=== PATIENT | male | born 2000 | race Caucasian/White ===

== ENCOUNTER → 2020-08-03 | Outpatient (CLI) | payer SELFPAY | LOC: M LABSMTC 14:03 | PROVIDERS: ATTEND Pediatrics | DX: Z11.52 Encounter for screening for COVID-19 (principal) | CPT/HCPCS: C9803; U0003 ==

== ENCOUNTER 2022-04-12 06:00 | Emergency (ER) | payer OTHER, SELFPAY ==
[~2022-04-12] VITALS: Ht 175.3 cm; Wt 96.6 kg
[2022-04-12] MEDS ORDERED: IBUPROFEN 800 MG TAB PO ONE (07:30)
[2022-04-12] MEDS ORDERED: AUGMENTIN 875 MG TAB PO ONE (07:30)
[2022-04-12] MEDS ORDERED: AMOX875T2 PO (08:15)
[2022-04-12] MEDS ORDERED: PSEU120T19 PO (08:17)
[2022-04-12 08:18] VITALS: BP 144/91
== END 2022-04-12 08:43 | disposition home or self-care (01) ==
LOC: M ED 06:00
DX: J03.90 Acute tonsillitis, unspecified (principal); H92.03 Otalgia, bilateral; Z79.899 Other long term (current) drug therapy

== ENCOUNTER → 2024-01-19 | Outpatient (CLI) | payer OTHER ==
[~2024-01-19] MED LIST: AMOX875T2 PO; PSEU120T19 PO
== END ==
LOC: M PLARAD 13:24
PROVIDERS: ATTEND Internal Medicine
DX: R59.0 Localized enlarged lymph nodes (principal); R16.0 Hepatomegaly, not elsewhere classified; R61 Generalized hyperhidrosis; D48.7 Neoplasm of uncertain behavior of other specified sites
CPT/HCPCS: 78815; A9552

== ENCOUNTER 2024-01-26 23:43 | Emergency (ER) | payer OTHER ==
[~2024-01-26] VITALS: Ht 175.3 cm; Wt 91.5 kg
[2024-01-26 23:45] VITALS: TEMP 98
[2024-01-27 00:21] LABS: BASO % 0.3 % (0.0-1.0); EOS # 0.1 10^3/uL (0.0-0.5); EOS % 1.3 % (0.0-3.0); HEMATOCRIT 41.1 % (42.0-52.0); HEMOGLOBIN 14.2 g/dl (13.5-17.5); LYMPH # 3.2 10^3/uL (1.5-5.0); LYMPH % 39.9 % (24.0-44.0); MEAN CORPUSCULAR HEMOGLOBIN 30.9 pg (27.0-33.0); MEAN CORPUSCULAR HGB CONC 34.5 g/dl (32.0-36.5); MEAN CORPUSCULAR VOLUME 89.3 fl (80.0-96.0); MONO # 0.7 10^3/uL (0.0-0.8); MONO % 8.9 % (2.0-8.0); NEUTROPHILS % 49.2 % (36.0-66.0); PLATELET COUNT, AUTOMATED 200 10^3/uL (150-450)
[2024-01-27 00:37] LABS: ETHYL ALCOHOL (ETHANOL) < 0.003 % (0.000-0.010); LIPASE 288 U/L (12-53)
[2024-01-27 00:38] LABS: AMYLASE 129 U/L (30-118)
[2024-01-27 00:39] LABS: ALBUMIN 4.4 G/DL (3.2-5.2); ALKALINE PHOSPHATASE 92 U/L (46-116); ALT/SGPT 25 U/L (7.0-40); AST/SGOT 12 U/L (<34); BILIRUBIN,DIRECT < 0.1 MG/DL (<0.4); BILIRUBIN,TOTAL 0.3 MG/DL (0.3-1.2); TOTAL PROTEIN 7.5 G/DL (5.7-8.2)
[2024-01-27 02:52] VITALS: BP 170/118; O2SAT 100
[2024-01-27] MEDS ORDERED: KETOROLAC 30 MG/ML 1ML VIAL IM ONE (03:50)
[2024-01-27] MEDS ORDERED: ISOVUE-370 76% 100ML VIAL As Ordered ONE (03:59)
[2024-01-27] MEDS: KETOROLAC 30 MG/ML 1ML VIAL IV ONE (04:19)
== END 2024-01-27 07:32 | disposition home or self-care (01) ==
LOC: M ED 23:43
DX: R16.1 Splenomegaly, not elsewhere classified (principal); K59.00 Constipation, unspecified
CPT/HCPCS: 74177; 76705; 80047; 80076; 82077; 82150; 83690; 85025; 96374; 99284; J1885; Q9967

== ENCOUNTER 2024-01-30 11:58 | Emergency (ER) | payer OTHER ==
[~2024-01-30] VITALS: Ht 175.3 cm; Wt 86.4 kg
[2024-01-30 12:51] LABS: BASO % 0.4 % (0.0-1.0); EOS % 0.4 % (0.0-3.0); HEMATOCRIT 44.7 % (42.0-52.0); HEMOGLOBIN 15.4 g/dl (13.5-17.5); LYMPH % 13.2 % (24.0-44.0); MEAN CORPUSCULAR HEMOGLOBIN 30.6 pg (27.0-33.0); MEAN CORPUSCULAR HGB CONC 34.5 g/dl (32.0-36.5); MEAN CORPUSCULAR VOLUME 88.9 fl (80.0-96.0); MONO # 0.6 10^3/uL (0.0-0.8); MONO % 7.9 % (2.0-8.0); NEUTROPHILS # 6.1 10^3/uL (1.5-8.5); NEUTROPHILS % 77.8 % (36.0-66.0); PLATELET COUNT, AUTOMATED 199 10^3/uL (150-450); RED BLOOD COUNT 5.03 10^6/uL (4.30-6.10); WHITE BLOOD COUNT 7.9 10^3/uL (4.0-10.0)
[2024-01-30 13:25] LABS: ALBUMIN 4.8 G/DL (3.2-5.2); BILIRUBIN,DIRECT 0.3 MG/DL (<0.4); BILIRUBIN,TOTAL 0.9 MG/DL (0.3-1.2); TOTAL PROTEIN 8.2 G/DL (5.7-8.2)
[2024-01-30] MEDS: NS 1,000 ML IV ONE (13:46)
[2024-01-30] MEDS: KETOROLAC 30 MG/ML 1ML VIAL IV ONE (13:46)
[2024-01-30 14:08] LABS: AMORPHOUS SEDIMENT SMALL (NEGATIVE); APPEARANCE, URINE CLOUDY (CLEAR); BACTERIA, URINE AUTO NEGATIVE (NEGATIVE); BILIRUBIN, URINE AUTO NEGATIVE (NEGATIVE); BLOOD, URINE BLOOD NEGATIVE (NEGATIVE); COLOR, URINE YELLOW (YELLOW); GLUCOSE, URINE (UA) AUTO NEGATIVE (NEGATIVE); KETONE, URINE AUTO TRACE mg/dL (NEGATIVE); LEUKOCYTE ESTERASE, URINE AUTO NEGATIVE (NEGATIVE); MUCUS, URINE SMALL (NEGATIVE); NITRITE, URINE AUTO NEGATIVE (NEGATIVE); PROTEIN, URINE AUTO 1+ mg/dL (NEGATIVE); RBC, URINE AUTO 0 /HPF (0-3); SPECIFIC GRAVITY URINE AUTO 1.023 (1.002-1.035); SQUAMOUS EPITHELIAL CELL UR AU 0 /HPF (0-6); UROBILINOGEN, URINE AUTO 0.2 mg/dL (0.0-2.0); WBC, URINE AUTO 1 /HPF (0-3)
[2024-01-30 14:37] LABS: AMPHETAMINES LEVEL URINE NEGATIVE (NEGATIVE)
[2024-01-30 14:38] LABS: BARBITURATES URINE NEGATIVE (NEGATIVE); BENZODIAZEPINES URINE NEGATIVE (NEGATIVE); COCAINE METABOLITE URINE NEGATIVE (NEGATIVE); METHADONE URINE NEGATIVE (NEGATIVE); PHENCYCLIDINE URINE NEGATIVE (NEGATIVE)
[2024-01-30 14:44] LABS: MONO REFLEX EBV COMP NEGATIVE (NEGATIVE)
[2024-01-30 14:50] LABS: CANNABINOIDS URINE POSITIVE (NEGATIVE); OPIATES URINE POSITIVE (NEGATIVE)
[2024-01-30 15:40] VITALS: BP 173/95; TEMP 98.8; O2SAT 100
[2024-02-02 14:37] LABS: EBV AB TO NUCLEAR ANTIGEN > 600.00 U/mL (<18.00); EBV VIRAL CAPSID AG IGM < 36.00 U/mL (<36.00)
== END 2024-01-30 15:44 | disposition home or self-care (01) ==
LOC: M ED 11:58
DX: R10.12 Left upper quadrant pain (principal); F19.10 Other psychoactive substance abuse, uncomplicated
CPT/HCPCS: 80047; 80076; 80307; 81001; 82150; 83605; 83690; 85025; 86308; 86664; 86665; 96361; 96374; 99284; J1885

== ENCOUNTER 2024-04-18 15:58 | Emergency (ER) | payer OTHER ==
[~2024-04-18] VITALS: Ht 175.3 cm; Wt 89.6 kg
[2024-04-18] MEDS ORDERED: CYCL-707 (16:07)
[2024-04-18 18:21] VITALS: BP 113/63; TEMP 98.7; O2SAT 99
[2024-04-18 18:53] LABS: BASO % 0.5 % (0.0-1.0); EOS % 0.3 % (0.0-3.0); HEMATOCRIT 39.9 % (42.0-52.0); LYMPH # 2.2 10^3/uL (1.5-5.0); LYMPH % 25.6 % (24.0-44.0); MEAN CORPUSCULAR HGB CONC 35.1 g/dl (32.0-36.5); MEAN CORPUSCULAR VOLUME 91.1 fl (80.0-96.0); MONO # 0.6 10^3/uL (0.0-0.8); MONO % 6.4 % (2.0-8.0); NEUTROPHILS # 5.9 10^3/uL (1.5-8.5); NEUTROPHILS % 66.9 % (36.0-66.0); PLATELET COUNT, AUTOMATED 186 10^3/uL (150-450); RED BLOOD COUNT 4.38 10^6/uL (4.30-6.10); WHITE BLOOD COUNT 8.8 10^3/uL (4.0-10.0)
[2024-04-18 19:20] LABS: BLOOD UREA NITROGEN 13 MG/DL (9-23); CALCIUM LEVEL 9.9 MG/DL (8.5-10.1); CARBON DIOXIDE LEVEL 26 MMOL/L (20-31); CHLORIDE LEVEL 107 MMOL/L (98-107); CK-MB VALUE MASS < 1.0 NG/ML (<3.6); CPK CREATINE PHOSPHOKINASE 78 U/L (46-171); CREATININE FOR GFR 0.84 MG/DL (0.70-1.30); GLOMERULAR FILTRATION RATE > 60.0 (>60); GLUCOSE, FASTING 78 MG/DL (60-100); MB/CK RELATIVE INDEX 1.28 (< OR =4); POTASSIUM SERUM 3.7 MMOL/L (3.5-5.1); SODIUM LEVEL 141 MMOL/L (136-145)
[2024-04-18] MEDS ORDERED: IBUPROFEN 600MG TAB PO ONE (19:55)
== END 2024-04-18 20:00 | disposition left against medical advice (07) ==
LOC: M ED 15:58
DX: M62.830 Muscle spasm of back (principal); K00-K95 Diseases of the digestive system; Z79.899 Other long term (current) drug therapy; Z53.9 Procedure and treatment not carried out, unspecified reason

== ENCOUNTER → 2024-06-29 | Outpatient (CLI) | payer OTHER ==
[~2024-06-29] MED LIST changes: +CYCL-707
== END ==
LOC: M SLEEP 20:00
PROVIDERS: ATTEND Internal Medicine
DX: G47.8 Other sleep disorders (principal)

== ENCOUNTER → 2024-07-07 | Outpatient (CLI) | payer OTHER ==
[2024-07-07 13:27] LABS: BASO % 0.5 % (0.0-1.0); EOS # 0.1 10^3/uL (0.0-0.5); EOS % 1.2 % (0.0-3.0); HEMOGLOBIN 15.2 g/dl (13.5-17.5); LYMPH # 2.3 10^3/uL (1.5-5.0); LYMPH % 34.6 % (24.0-44.0); MEAN CORPUSCULAR HGB CONC 34.5 g/dl (32.0-36.5); MEAN CORPUSCULAR VOLUME 89.6 fl (80.0-96.0); MONO # 0.6 10^3/uL (0.0-0.8); MONO % 9.2 % (2.0-8.0); NEUTROPHILS # 3.5 10^3/uL (1.5-8.5); NEUTROPHILS % 54.2 % (36.0-66.0); PLATELET COUNT, AUTOMATED 194 10^3/uL (150-450); RED BLOOD COUNT 4.91 10^6/uL (4.30-6.10); WHITE BLOOD COUNT 6.5 10^3/uL (4.0-10.0)
[2024-07-07 13:41] LABS: ERYTHROCYTE SEDIMENTATION RATE 7 mm/hr (0-15)
[2024-07-07 13:54] LABS: APPEARANCE, URINE HAZY (CLEAR); BACTERIA, URINE AUTO NEGATIVE (NEGATIVE); BILIRUBIN, URINE AUTO NEGATIVE (NEGATIVE); BLOOD, URINE BLOOD NEGATIVE (NEGATIVE); COLOR, URINE YELLOW (YELLOW); GLUCOSE, URINE (UA) AUTO NEGATIVE (NEGATIVE); KETONE, URINE AUTO NEGATIVE (NEGATIVE); LEUKOCYTE ESTERASE, URINE AUTO NEGATIVE (NEGATIVE); MUCUS, URINE SMALL (NEGATIVE); NITRITE, URINE AUTO NEGATIVE (NEGATIVE); PROTEIN, URINE AUTO NEGATIVE (NEGATIVE); RBC, URINE AUTO 0 /HPF (0-3); SPECIFIC GRAVITY URINE AUTO 1.024 (1.002-1.035); SQUAMOUS EPITHELIAL CELL UR AU 0 /HPF (0-6); UROBILINOGEN, URINE AUTO 0.2 mg/dL (0.0-2.0); WBC, URINE AUTO 0 /HPF (0-3)
[2024-07-07 14:04] LABS: DRVV SCREEN 32.9 SECONDS
[2024-07-07 14:05] LABS: PTT LUPUS TYPE ANTICOAG SCREEN 0.84 (0-1.20)
[2024-07-07 14:42] LABS: ALBUMIN 4.5 G/DL (3.2-5.2); BLOOD UREA NITROGEN 16 MG/DL (9-23); C REACTIVE PROTEIN QUANTITATIV < 0.50 MG/DL (<1.0); CALCIUM LEVEL 9.9 MG/DL (8.5-10.1); CARBON DIOXIDE LEVEL 28 MMOL/L (20-31); CHLORIDE LEVEL 107 MMOL/L (98-107); CREATININE FOR GFR 0.85 MG/DL (0.70-1.30); GLOMERULAR FILTRATION RATE > 60.0 (>60); GLUCOSE, FASTING 84 MG/DL (60-100); PHOSPHORUS LEVEL 3.7 MG/DL (2.5-4.9); POTASSIUM SERUM 4.2 MMOL/L (3.5-5.1); SODIUM LEVEL 146 MMOL/L (136-145)
[2024-07-07 14:44] LABS: COMPLEMENT C3 143.9 MG/DL (82.0-160.0); COMPLEMENT C4 22.8 MG/DL (12-36)
[2024-07-08 14:37] LABS: SSA SJOGRENS A <1.0 NEG AI (<1.0 NEG); SSB SJOGRENS B <1.0 NEG AI (<1.0 NEG)
[2024-07-08 15:08] LABS: ANA SCREEN, IFA NEGATIVE (NEGATIVE)
== END ==
LOC: M LAB 11:14
PROVIDERS: ATTEND Nurse Practitioner Family
DX: R21 Rash and other nonspecific skin eruption (principal); Z79.899 Other long term (current) drug therapy